=== PATIENT | female | born 1985 | race Caucasian/White ===

== ENCOUNTER 2016-06-11 16:26 | Inpatient (IN) | payer OTHER ==
--- NOTE | 2016-06-11 17:03 | Emergency Department Report ---
Chief Complaint: Abdominal Pain Stated Complaint: PHYSICIAN REFERRED/EYE Time Seen by Provider: 06/11/16 17:02 - HPI History of Present Illness: 31 year old female presents with ruq pain, jaundice, and scleral icterus for 3 days with associated NV. states that she was UC and told to come to the ED. denies fever. - Exam Vital Signs: Vital Signs 06/11/16 16:40 Temperature 98.2 F Pulse Rate 72 Respiratory 18 Rate Blood Pressure 103/70 O2 Sat by Pulse 100 Oximetry Physical Exam: VSS patient doesnt appear distressed skin and eyes appear yellow TTP to RUQ. MSE screening note: Focused history and physical exam performed. Due to findings the following was ordered: ED Disposition for MSE Condition: Stable Instructions: Abdominal Pain (ED)
[2016-06-11 17:46] LABS: Basophils % (Auto) 0.7 % (0.0-1.8); Hematocrit 37.3 % (30.3-42.9); Hemoglobin 12.6 gm/dl (10.1-14.3); Mean Corpuscular HGB Conc 34 % (30-34); Mean Corpuscular Hemoglobin 32 pg (28-32); Mean Corpuscular Volume 94 fl (79-97); Platelet Count 319 K/mm3 (140-440); Red Blood Count 3.95 M/mm3 (3.65-5.03); Red Cell Distribution Width 15.9 % (13.2-15.2); White Blood Count 6.4 K/mm3 (4.5-11.0)
[2016-06-11 17:51] LABS: Bilirubin,Urine MOD (Negative); Blood,Urine NEG (Negative); Ketones,Urine NEG (Negative); Leukocyte Esterase,Urine NEG (Negative); Mucus,Urine 1+ /HPF; Nitrite,Urine NEG (Negative); Protein,Urine <15 mg/dL mg/dL (Negative); WBC,Urine < 1.0 /HPF (0.0-6.0)
[2016-06-11 18:02] LABS: INR 0.91 (0.87-1.13)
[2016-06-11 18:03] LABS: Partial Thromboplastin Time 29.3 Sec. (24.2-36.6)
[2016-06-11 18:07] LABS: Alanine Aminotransferase 356 units/L (7-56); Alkaline Phosphatase 532 units/L (35-129); Anion Gap 21 mmol/L; Bilirubin,Total 9.2 mg/dL (0.1-1.2); Blood Urea Nitrogen 10 mg/dL (7-17); Calcium 9.3 mg/dL (8.4-10.2); Carbon Dioxide 19 mmol/L (22-30); Chloride 101.3 mmol/L (98-107); Glucose 103 mg/dL (65-100); Potassium 3.9 mmol/L (3.6-5.0); Sodium 137 mmol/L (137-145); Total Protein 8.2 g/dL (6.3-8.2)
[2016-06-11 18:15] LABS: Lipase 590 units/L (13-60)
--- NOTE | 2016-06-11 20:04 | Ultrasound Report ---
FINAL REPORT EXAM: US ABDOMEN LIMITED HISTORY: ruq pain TECHNIQUE: Real-time sonography was performed of the right upper quadrant and images are submitted for interpretation. PRIORS: None. FINDINGS: There is diffuse increased echogenicity of the liver. There is a 2.9 x 2.7 cm echogenic mass in the dome of the right lobe of the liver slightly less echogenic than the surrounding liver parenchyma. There numerous stones in an otherwise normal-appearing gallbladder. There is intrahepatic biliary dilatation. The common bile duct is dilated to 1.3 cm. The pancreas has a normal echogenicity and appearance. The visualized segments of the abdominal aorta and inferior vena cava appear normal. The right kidney appears normal in size, shape and echogenicity, measuring 11.4 x 5.2 x 4.0 cm. IMPRESSION: 1. Multiple stones in the gallbladder. Intra and extrahepatic biliary dilatation raises the possibility of a CBD stone. 2. 2.9 cm mass in the right lobe of the liver may represent a hemangioma. 3. Diffuse fatty infiltration of the liver 4. MRI of the abdomen with MRCP is recommended for further evaluation.
--- NOTE | 2016-06-12 03:55 | Emergency Department Report ---
HPI - General Chief Complaint: Abdominal Pain Time Seen by Provider: 06/12/16 03:28 - HPI HPI: This is a 31-year-old female who presents to the emergency department with complaint of a three-day history of right upper quadrant abdominal pain and jaundice. Patient also complains of some generalized itching of the body. She first noticed that she was getting a bronze tinge to her scan and her eyes were becoming yellow. Patient denies any significant history other than some mild anemia. She just delivered a baby vaginally about 4 months ago and has continued to breast-feed and therefore has not yet had a return of her menstrual cycle. She does not currently have a primary care physician. She is not taken anything for symptoms prior to presentation. Patient has had a decreased appetite but says that when she has eaten and has not affected her discomfort. No recent travel or sick contacts at home. ED Past Medical Hx - Past Medical History Previous Medical History?: Yes Additional medical history: amenia - Surgical History Past Surgical History?: No - Social History Smoking Status: Never Smoker Substance Use Type: None ED Review of Systems ROS: Stated complaint: PHYSICIAN REFERRED/EYE Other details as noted in HPI Comment: All other systems reviewed and negative Constitutional: denies: chills, fever Eyes: denies: eye pain, eye discharge, vision change ENT: denies: ear pain, throat pain Respiratory: denies: cough, shortness of breath, wheezing Cardiovascular: denies: chest pain, palpitations Gastrointestinal: abdominal pain. denies: vomiting Genitourinary: denies: urgency, dysuria, discharge Musculoskeletal: denies: back pain, joint swelling, arthralgia Skin: change in color, pruritus Neurological: denies: headache, weakness, paresthesias Physical Exam - Physical Exam Vital Signs: Vital Signs 06/11/16 06/12/16 06/12/16 16:40 02:53 03:44 Temperature 98.2 F 98.1 F Pulse Rate 72 81 65 Respiratory 18 18 16 Rate Blood Pressure 103/70 107/73 Blood Pressure 117/65 [Left] O2 Sat by Pulse 100 98 98 Oximetry Physical Exam: GENERAL: The patient is well-developed well-nourished. HEENT: Normocephalic. Atraumatic. Extraocular motions are intact. Patient has moist mucous membranes. Pupils equal reactive to light bilaterally. Patient has scleral icterus. NECK: Supple. Trachea is midline. CHEST/LUNGS: Clear to auscultation. There is no respiratory distress noted. HEART/CARDIOVASCULAR: Regular. There is no tachycardia. There is no gallop rub or murmur. ABDOMEN: Abdomen is soft. The patient has tenderness to palpation to the right upper quadrant and epigastrium. No guarding or rebound tenderness. No peritoneal signs. Patient has normal bowel sounds. There is no abdominal distention. SKIN: Patient's skin is jaundiced. NEURO: The patient is awake, alert, and oriented. The patient is cooperative. The patient has no focal neurologic deficits. The patient has normal speech and gait. MUSCULOSKELETAL: There is no tenderness or deformity. There is no limitation range of motion. There is no evidence of acute injury. ED Course Vital Signs 06/11/16 06/12/16 06/12/16 16:40 02:53 03:44 Temperature 98.2 F 98.1 F Pulse Rate 72 81 65 Respiratory 18 18 16 Rate Blood Pressure 103/70 107/73 Blood Pressure 117/65 [Left] O2 Sat by Pulse 100 98 98 Oximetry ED Medical Decision Making - Lab Data Result diagrams: 06/11/16 17:28 06/11/16 17:28 - Radiology Data Radiology results: report reviewed Right upper quadrant ultrasound of the abdomen shows multiple stones in the gallbladder but the gallbladder is is otherwise normal-appearing. In general and extrahepatic biliary dilatated and raises the possibility of a common bile duct stone. 2.9 cm mass in the right lobe of the liver may represent a hemangioma. Fatty infiltration of the liver. MRI of the abdomen with MRCP is recommended for further evaluation. - Medical Decision Making 31-year-old female presents to the emergency department with 3 day history of right upper quadrant and epigastric pain as well as jaundice and scleral icterus. Patient's labs show elevation in bilirubin, LFTs and lipase. Ultrasound was done that shows normal-appearing gallbladder and pancreas but there are gallstones as well as some dilatated of the common bile duct concerning for possible common bile duct stones. Patient will need MRCP and further consultation by gastroenterology and/or surgery. Patient will be admitted to hospital for further evaluation and treatment. - Differential Diagnosis choledocholithiasis, cholangitis, cholecystitis, pancreatitis, hepatitis Critical Care Time: No Critical care attestation.: If time is entered above; I have spent that time in minutes in the direct care of this critically ill patient, excluding procedure time. ED Disposition Clinical Impression: Cholangitis, Choledocholithiasis, Transaminitis, Hyperbilirubinemia Abdominal pain Qualifiers: Abdominal location: right upper quadrant Qualified Code(s): R10.11 - Right upper quadrant pain Disposition: OP ADMITTED IP TO THIS HOSP Is pt being admited?: Yes Condition: Stable Instructions: Abdominal Pain (ED) Time of Disposition: 04:17
--- NOTE | 2016-06-12 04:28 | History and Physical Report ---
History of Present Illness Chief complaint: changing color, abdominal pain History of present illness: 31 YO Female with Anemia presents to ED for evaluation. Pt states that she has been experiencing abdominal pain for the past 3 days. Pain is 5/10, localized to the RUQ, and is accompanied by darkening of the skin, yellowing of the eyes, and itching. Pt denies fever, chills, CP, palpitations, NVD, trauma, skin rashes , or recent ill contacts. Pt denies pain with meals, unintentional weight loss, night sweats. Past History Past Medical History: anemia, other Past Surgical History: No surgical history, Other (reviewed) Social history: no significant social history, single. denies: smoking, alcohol abuse Family history: hypertension Medications and Allergies Allergies Allergy/AdvReac Type Severity Reaction Status Date / Time Penicillins Allergy Unknown Verified 06/12/16 04:42 Review of Systems Gastrointestinal: abdominal pain Exam - Constitutional Vitals: Temp Pulse Resp BP Pulse Ox 98.1 F 65 16 117/65 98 06/12/16 02:53 06/12/16 03:44 06/12/16 03:44 06/12/16 03:44 06/12/16 03:44 General appearance: Present: no acute distress - EENT Eyes: Present: scleral icterus ENT: hearing intact, clear oral mucosa - Neck Neck: Present: supple, normal ROM - Respiratory Respiratory effort: normal Respiratory: bilateral: CTA - Cardiovascular Heart Sounds: Present: S1 & S2. Absent: rub, click - Extremities Extremities: pulses symmetrical, No edema Peripheral Pulses: within normal limits - Abdominal General gastrointestinal: Present: soft, non-tender, non-distended, normal bowel sounds. Absent: hepatomegaly, splenomegaly Female genitourinary: Present: normal - Integumentary Integumentary: Present: clear, warm, dry, jaundice - Musculoskeletal Musculoskeletal: gait normal, strength equal bilaterally - Psychiatric Psychiatric: appropriate mood/affect, intact judgment & insight - Neurologic Neurologic: CNII-XII intact, moves all extremities Results - Labs CBC & Chem 7: 06/11/16 17:28 06/11/16 17:28 Labs: Abnormal lab results 06/11/16 06/11/16 Range/Units 17:28 17:28 RDW 15.9 H (13.2-15.2) % [place] % (Auto) 10.3 H (0.0-7.3) % Carbon Dioxide 19 L (22-30) mmol/L Creatinine 0.2 L (0.7-1.2) mg/dL Glucose 103 H (65-100) mg/dL Total Bilirubin 9.2 H (0.1-1.2) mg/dL AST 219 H (5-40) units/L ALT 356 H (7-56) units/L Alkaline Phosphatase 532 H (35-129) units/L Lipase 590 H (13-60) units/L Assessment and Plan - Patient Problems (1) Obstructive jaundice Current Visit: Yes Status: Acute Plan to address problem: Ultrasound Abdomen, MRCP in AM. GI and surgery consulted in ED. (2) Abdominal pain Current Visit: Yes Status: Acute Qualifiers: Abdominal location: right upper quadrant Qualified Code(s): R10.11 - Right upper quadrant pain Plan to address problem: serial abdominal exam, supportive care, (3) Cholangitis Current Visit: Yes Status: Acute Plan to address problem: MRCP in AM, Surgery consulted in ED (4) Hyperbilirubinemia Current Visit: Yes Status: Acute Plan to address problem: secondary to obstructive jaundice. repeat cmp, supportive care, MRCP, GI and Surgery consulted (5) DVT prophylaxis Current Visit: Yes Status: Acute
--- NOTE | 2016-06-12 07:59 | Admit Criteria Form ---
Admission Criteria Documentation: ABDOMINAL PAIN Clinical Indications for Admission to Inpatient Care (Place 'X' for any and all applicable criteria): Admission is indicated for ANY ONE of the following(1)(2)(3)(4)(5): [ X]I. Inpatient admission required rather than observation care (Also use Abdominal Pain: Observation Care, as appropriate) because of ANY ONE of the following: [ ]a) Severe pain requiring acute inpatient management [ ]b) Identification of etiology/finding that requires inpatient care (eg, aortic dissection, free air) [ ]c) Absent bowel sounds with complete ileus(6) [ ]d) Suspected toxic megacolon [ ]e) Severe electrolyte abnormalities requiring inpatient care [ ]f) High fever or infection requiring inpatient admission as indicated by ANY ONE of following(7)(8): [ ] i) Appropriate outpatient or observational care antimicrobial treatment unavailable, not effective, or not feasible [ ] ii) Documented bacteremia [ ] iii) Temperature > 104.9 degrees F (oral) [ ] iv) T >103.1 F (oral) or < 96.8 F(rectal) that does not respond to all emergency treatment measures [ ]g) Signs of intestinal obstruction [B] [ ]h) Hemodynamic instability [ ]i) IV fluid to replace significant ongoing losses (greater than 3 L/m2 per day) (12)(13) [ X]j) Percutaneous or open drainage (eg, abscess, biliary tract) procedures [ ]k) Parenteral nutrition regimen that must be implemented on inpatient basis [ ]l) Other condition,treatment or monitoring requiring inpatient admission. [ ]II. Peritoneal signs present [ ]III. Surgery needed that cannot be performed on an ambulatory basis. [ ]IV. Evaluation requires patient to not eat or drink for extended period ( eg, more than 24 hours). [ ]V. Contraindications and/or Inappropriate clinical situations for Observational Care in patients with abdominal pain, when ANY ONE of the following is required: [ ]a) Thorough evaluation is required to prevent catastrophic events due to delays in diagnosing (e.g.Mesenteric ischemia) 1,3 [ ]b) Patient with severe pathology or with chronic symptoms unlikely to improve in the ED stay (3) [ ]. General contraindications and/or Inappropriate clinical situations for Observational Care in patients with abdominal pain, when ANY ONE of the following is required: [ ]a) Prediction of prolongation of LOS based on ANY ONE of the following may be considered as a contraindication for observational care 2, 3, 4, 5, 6, 7, 8, 9, 10, 11 [ ]i) Age > 65 yrs. [ ]ii) Patient arriving by ambulance [ ]iii) Patient with high acuity [ ]iv) Patient requiring vital sign monitoring [ ]v) Patient on IV medication [ ]b) Systolic blood pressures 180mmHg 3,12 [ ]c) Patient with altered mental status including delirium and other alteration of consciousness, (3) [ ]d) Patient whose discharge disposition will be to a [place] [facility] home or rehabilitation home should not be managed in Emergency Department Observation Unit. CMS rule requires 3 days hospital stay before such placement.3,13 [ ]e) Patient with failure to thrive due to broad array of etiologies 3,16,17 [ ]f) Inability to ambulate 3,14 Extended stay beyond goal length of stay may be needed for(2)(3): [ ]a) Persistent abdominal pain with suspected intra-abdominal process [ ]b) Diagnosed condition requiring continued stay (e.g., pancreatitis, complicated diverticulitis) [ ]c) Surgery (e.g., colectomy) The original [facility] content created by [employer] has been revised. The portions of the content which have been revised are identified through the use of italic text or in bold, and [facility] has neither reviewed nor approved the modified material.All other unmodified content is copyright [facility]. Please see references footnoted in the original [facility] edition 2016 Admission Criteria Met: Yes
[2016-06-12] MEDS: BENADRYL IV PRN ×2 (09:09→14:00)
[2016-06-12] MEDS: ZOFRAN IV PRN (09:09)
[2016-06-12] MEDS: NACL 0.45% 1000 ML 1,000 ML IV SCH ×2 (09:09→16:54)
[2016-06-12] MEDS: MORPHINE IV PRN ×2 (09:09→16:49)
[2016-06-12 13:22] LABS: Alanine Aminotransferase 322 units/L (7-56); Albumin 3.8 g/dL (3.9-5); Alkaline Phosphatase 521 units/L (35-129); Anion Gap 20 mmol/L; Bilirubin,Total 9.4 mg/dL (0.1-1.2); Blood Urea Nitrogen 9 mg/dL (7-17); Calcium 9.4 mg/dL (8.4-10.2); Carbon Dioxide 20 mmol/L (22-30); Chloride 101.5 mmol/L (98-107); Glucose 87 mg/dL (65-100); Potassium 3.7 mmol/L (3.6-5.0); Sodium 138 mmol/L (137-145); Total Protein 7.7 g/dL (6.3-8.2)
--- NOTE | 2016-06-12 13:29 | Event Note ---
Date: 06/12/16 Patient seen clinically stable, awaiting GI input. Continue to monitor.
--- NOTE | 2016-06-12 13:51 | Magnetic Resonance Report ---
MRI ABDOMEN WITHOUT CONTRAST WITH MRCP: INDICATION: Obstructive jaundice. COMPARISON: Yesterday's ultrasound. FINDINGS: Noncontrast multiplanar and multisequence MRI of the abdomen demonstrates [id number] intrahepatic biliary dilatation centrally. Multiple gallstones measuring to the order of 5-6 mm noted within the gallbladder and also some along the distal common bile duct. Normal hepatic contours without MRI evidence of fatty infiltration. Approximately 3 x 2.7 cm hepatic lesion seen on ultrasound, barely visible in the right hepatic lobe posterosuperiorly and minimally T1 hypointense as on axial series 5, image 38 and faintly T2 hyperintense as on axial series 4, image 17 measuring approximately 3 cm. Spleen, pancreas, adrenals, non-aneurysmal abdominal aorta, IVC and kidneys within normal limits. No ascites or definite size significant adenopathy. Grossly unremarkable bowel, marrow and muscle signal. [id number] colonic stool/possible constipation. Small umbilical hernia not excluded with slight outward bowing and subjacent nonobstructive bowel. Normal imaged lung bases. MRCP images confirm the above findings. CBD caliber at the yolanda hepatis approximately 14 mm and approximately 12 mm at the level of the pancreatic head with extensive [id number] common bile duct calculi/debris measuring approximately 3.3 x 1 cm noted extending up to the ampulla. No abnormal pancreatic duct dilation, measuring 2-3 mm. CONCLUSION: 1. Extensive choledocholithiasis with biliary dilation, as described. 2. Multiple gallstones also noted. 3. Subtle right hepatic lobe lesion posterosuperiorly, inadequately characterized, though a hemangioma or fatty hepatic infiltration not confirmed on this unenhanced MRI. Further evaluation with liver mass protocol CT suggested as the next step, if so appropriate. 4. Few other incidental findings, as above. Thank you for the opportunity to participate in this patient's care.
--- NOTE | 2016-06-12 17:00 | Gastroenterology Consultation ---
[id number] Consult date: 06/12/16 obstructive jaundice - History of Present Illness 31 y/o female presents to the ED she has been experiencing RUQ pain abdominal pain for the past 3 days and is associated with jaundice. fever, SOB and CP , but admits to shaking chills. No significant PMH or medications. Past History Past Medical History: No medical history, anemia, other Past Surgical History: No surgical history, Other (reviewed) Social history: no significant social history, single. denies: smoking, alcohol abuse Family history: hypertension Medications and Allergies Allergies Allergy/AdvReac Type Severity Reaction Status Date / Time No Known Allergies Allergy Unverified 06/13/16 11:48 Home Medications Medication Instructions Recorded Confirmed Last Taken Type No Known Home Medications [No 06/12/16 06/12/16 Unknown History Reported Home Medications] Active Meds: Active Medications Diphenhydramine HCl (Benadryl) 25 mg IV Q6H PRN PRN Reason: Itching Last Admin: 06/12/16 14:00 Dose: 25 mg Sodium Chloride (Nacl 0.45% 1000 Ml) 1,000 mls @ 100 mls/hr IV DIRECT CAMERON Last Admin: 06/12/16 09:09 Dose: 100 mls/hr Influenza Virus Vaccine Quadrival (Fluarix Quad [id number](36 Mos+)) 60 mcg IM .ONCE ONE Stop: 06/13/16 12:01 Morphine Sulfate (Morphine) 2 mg IV Q4H PRN PRN Reason: Pain, Moderate (4-6) Last Admin: 06/12/16 16:49 Dose: 2 mg Ondansetron HCl (Zofran) 4 mg IV Q8H PRN PRN Reason: Nausea And Vomiting Last Admin: 06/12/16 09:09 Dose: 4 mg Review of Systems - Review of Systems All systems: negative Gastrointestinal: abdominal pain, nausea Exam - Constitutional Vital Signs: Temp Pulse Resp BP Pulse Ox 98.8 F 51 L 15 99/54 97 06/12/16 15:55 06/12/16 15:55 06/12/16 15:55 06/12/16 15:55 06/12/16 15:55 General appearance: no acute distress - EENT Eyes: scleral icterus ENT: hearing intact - Neck Neck: supple - Respiratory Respiratory: bilateral: CTA - Cardiovascular Rhythm: regular Heart Sounds: Present: S1 & S2 Extremities: Full ROM - Gastrointestinal General gastrointestinal: Present: soft, tender (TTP RUQ), normal bowel sounds - Integumentary Integumentary: Present: warm, dry, jaundice - Neurologic Neurological: alert and oriented x3 - Psychiatric Psychiatric: appropriate mood/affect, cooperative - Labs CBC & Chem 7: 06/11/16 17:28 06/12/16 12:51 Lab Results: Laboratory Results - last 24 hr 06/12/16 12:51 Sodium 138 Potassium 3.7 Chloride 101.5 Carbon Dioxide 20 L Anion Gap 20 BUN 9 Creatinine 0.4 L D Estimated GFR > 60 BUN/Creatinine Ratio 22.50 Glucose 87 Calcium 9.4 Total Bilirubin 9.4 H AST 209 H ALT 322 H Alkaline Phosphatase 521 H Total Protein 7.7 Albumin 3.8 L Albumin/Globulin Ratio 1.0 Assessment and Plan 1. Choledocholithiasis -per MRCP -WBC WNL, afebrile -Plan for ERCP tomorrow. -NPO after MN -No blood thinning meds -INR WNL <COBY DIALLO R - Last Filed: 06/13/16 13:28> History of Present Illness - Reason for Consult Consult date: 06/12/16 Medications and Allergies Active Meds: Active Medications Diphenhydramine HCl (Benadryl) 25 mg IV Q6H PRN PRN Reason: Itching Last Admin: 06/13/16 00:41 Dose: 25 mg Sodium Bicarbonate 50 meq/ (Sodium Chloride) 1,050 mls @ 100 mls/hr IV DIRECT CAMERON Sodium Chloride (Nacl 0.9% 1000 Ml) 1,000 mls @ 75 mls/hr IV DIRECT CAMERON Stop: 06/13/16 23:00 Last Admin: 06/13/16 11:35 Dose: 75 mls/hr Morphine Sulfate (Morphine) 2 mg IV Q4H PRN PRN Reason: Pain, Moderate (4-6) Last Admin: 06/13/16 10:10 Dose: 2 mg Ondansetron HCl (Zofran) 4 mg IV Q8H PRN PRN Reason: Nausea And Vomiting Last Admin: 06/13/16 10:10 Dose: 4 mg Exam - Constitutional Vital Signs: Temp Pulse Resp BP Pulse Ox 98.3 F 67 20 101/66 99 06/13/16 11:20 06/13/16 11:20 06/13/16 11:20 06/13/16 11:20 06/13/16 11:20 - Labs CBC & Chem 7: 06/11/16 17:28 06/13/16 06:10 Lab Results: Laboratory Results - last 24 hr 06/12/16 06/13/16 12:51 06:10 Sodium 138 Potassium 4.0 Chloride 102.2 Carbon Dioxide 18 L Anion Gap 22 BUN 12 Creatinine 0.4 L D 0.4 L Estimated GFR > 60 BUN/Creatinine Ratio 30.00 Glucose 62 L Calcium 9.4 Total Bilirubin 10.7 H AST 166 H ALT 273 H Alkaline Phosphatase 506 H Total Protein 7.2 Albumin 3.6 L Albumin/Globulin Ratio 1.0 Assessment and Plan Pt with stones in CBD, needs ERCP.
[2016-06-13] MEDS: BENADRYL IV PRN ×2 (00:41→19:53)
[2016-06-13] MEDS: NACL 0.45% 1000 ML 1,000 ML IV SCH (00:54)
[2016-06-13 07:03] LABS: Alanine Aminotransferase 273 units/L (7-56); Albumin 3.6 g/dL (3.9-5); Alkaline Phosphatase 506 units/L (35-129); Bilirubin,Total 10.7 mg/dL (0.1-1.2); Blood Urea Nitrogen 12 mg/dL (7-17); Calcium 9.4 mg/dL (8.4-10.2); Carbon Dioxide 18 mmol/L (22-30); Chloride 102.2 mmol/L (98-107); Glucose 62 mg/dL (65-100); Sodium 138 mmol/L (137-145); Total Protein 7.2 g/dL (6.3-8.2)
[2016-06-13 07:07] LABS: Anion Gap 22 mmol/L
[2016-06-13] MEDS: MORPHINE IV PRN ×2 (10:10→20:10)
[2016-06-13] MEDS: ZOFRAN IV PRN (10:10)
[2016-06-13] MEDS ORDERED: NACL 0.45% 1000 ML 1,000 ML with SODIUM BICARBONATE 50 MEQ IV SCH (11:17)
[2016-06-13] MEDS ORDERED: NACL 0.9% 100 ML ONE (11:19)
[2016-06-13] MEDS ORDERED: WATER FOR IRRIG STERILE IR ONE (11:19)
[2016-06-13] MEDS: NACL 0.9% 1000 ML 1,000 ML IV SCH ×2 (11:35→13:57)
--- NOTE | 2016-06-13 11:45 | Anesthesia Day of Surgery ---
Anesthesia Day of Surgery - Day of Surgery Patient Examined: Yes Patient H&P Reviewed: Yes Patient is NPO: Yes
--- NOTE | 2016-06-13 11:45 | Anesthesia Consultation ---
Anesthesia Consult and Med Hx Date of service: 06/13/16 - Airway Anesthetic Teeth Evaluation: Good ROM Head & Neck: Adequate Mental/Hyoid Distance: Adequate Mallampati Class: Class I Intubation Access Assessment: Good - Pulmonary Exam CTA: Yes - Cardiac Exam Cardiac Exam: RRR - Pre-Operative Health Status ASA Pre-Surgery Classification: ASA2 Proposed Anesthetic Plan: MAC - Pulmonary Hx Asthma: No COPD: No Hx Pneumonia: No - Endocrine Hx End Stage Renal Disease: No - Other Systems Hx Cancer: No - Additional Comments Anesthesia Medical History Comments: very icteric, denies significant PMH
[2016-06-13] MEDS ORDERED: DIPRIVAN 10 MG/ML IV ONE (12:00)
[2016-06-13] MEDS ORDERED: FLUARIX QUAD 2016-2017(36 MOS+) IM ONE (12:00)
[2016-06-13] MEDS ORDERED: VERSED IV ONE (12:31)
[2016-06-13] MEDS ORDERED: DILAUDID ONE (12:32)
[2016-06-13] MEDS ORDERED: XYLOCAINE MPF 2% ONE (12:33)
--- NOTE | 2016-06-13 13:31 | Post Operative Note ---
Pre-op diagnosis: CBD stones Post-op diagnosis: same Findings: 1. CBD dilated to 12 mm, with multiple large filling defects. Sphincterotomy done, and stones removed. Procedure: ERCP with sphincterotomy and stone removal Anesthesia: MAC Surgeon: COBY DIALLO Estimated blood loss: none Pathology: none Condition: stable Disposition: floor (Avoid ASA/NSAIDs x 2 wks. Elective CCX.)
--- NOTE | 2016-06-13 15:14 | Post Anesthesia Evaluation ---
- Post Anesthesia Evaluation Patient Participated: Yes Airway Patent: Yes Stable Respiratory Function: Yes Nausea/Vomiting: No Temp > 96.8F: Yes Pain Manageable: Yes Adequeate Hydration: Yes Anesthesia Complications: No
--- NOTE | 2016-06-13 15:37 | Fluoroscopy Report ---
Retrograde cholangiogram: Exam was performed in the absence of a radiologist. The CBD was catheterized. Injection of contrast demonstrated a partially obstructing large defect in the distal duct with a couple of other defects noted proximally. The duct is generally dilated. There is some filling of the intrahepatic branches which also appear dilated with no definite filling defects however they are underfilled. One of the images demonstrates passage of a balloon. The ducts remain somewhat dilated following the procedure and the duct is incompletely opacified so retained calculi cannot be absolutely excluded. It is of note that the gallbladder is faintly opacified with multiple filling defects. The procedure sheet demonstrates that a papillotomy was also performed. Impression: 1. Gallstones. 2. Removal of some if not all of the biliary duct calculi.
--- NOTE | 2016-06-13 18:48 | Operative Report ---
PROCEDURE: ERCP with sphincterotomy and stone removal. PREOPERATIVE DIAGNOSIS: Choledocholithiasis. POSTOPERATIVE DIAGNOSIS: Choledocholithiasis. SEDATION: MAC by Anesthesia. HISTORY: The patient is a 31-year-old woman, who presents with obstructive jaundice and abdominal pain. DESCRIPTION OF PROCEDURE: Indications, risks, and benefits were explained and consent was obtained. The patient was placed on abdominal fluoroscopy table and sedated. [employer] video duodenoscope was passed through the mouth and oropharynx into the descending duodenum. Scope was then gradually withdrawn with close inspection of mucosa until the major papilla was visualized. Selective cannulation of common bile duct, especially achieved using the Autotome and guidewire. FINDINGS: 1. Bulging major papilla, otherwise normal. 2. Common bile duct is dilated to 12 mm with multiple large filling defects noted. 1 cm biliary sphincterotomy was performed. Then, the duct was swept repeatedly with a 12 mm balloon with the return of multiple large yellow stones measuring 1.2 to 1.4 cm and numbering at least 4 or 5. At the end of the procedure, no further filling defects were identified in the common bile duct. No strictures were identified. 3. Patent cystic duct. 4. Pancreatic duct was not visualized. The patient tolerated the procedure well without immediate complications. IMPRESSION: Choledocholithiasis - sphincterotomy with balloon. No bleeding noted. PLAN: 1. Elective cholecystectomy. 2. Avoid aspirin and nonsteroidals for 2 weeks. JOB# [id number] HRC/NTS
--- NOTE | 2016-06-13 19:14 | Progress Note ---
Assessment and Plan Assessment and plan: 31 YO Female with Anemia presents to ED for evaluation. Pt states that she has been experiencing abdominal pain for the past 3 days. Pain is 5/10, localized to the RUQ, and is accompanied by darkening of the skin, yellowing of the eyes, and itching. Pt denies fever, chills, CP, palpitations, NVD, trauma, skin rashes , or recent ill contacts. Pt denies pain with meals, unintentional weight loss, night sweats. * Choledocholithiasis * Patient status post ERCP with stone retrieval. Sphincterectomy. * Abdominal pain secondary to above * As noted above * Obstructive jaundice * Recent elevation in transaminases not improving and we'll continue to monitor status post hysterectomy * Discussed with GI avoid all NSAIDs, aspirin,. * Clear liquid diet today and if tolerated will be discharged tomorrow. * Post * DVT and GI prophylaxis History Interval history: Follow-up abdominal pain with noted CBD stone Patient seen and examined this morning in no acute distress Denies any chest pain, nausea, vomiting, diarrhea, although mild abdominal pain improved compared to yesterday No fever noted blood pressure controlled No adverse events reported to me by nursing staff Hospitalist Physical - Physical exam Narrative exam: VITAL SIGNS: Reviewed. GENERAL: The patient appeared well nourished and normally developed. Vital signs as documented. HEAD: No signs of head trauma. EYES: Pupils are equal. Extraocular motions intact, sclerae icteric. EARS: Hearing grossly intact. MOUTH: Oropharynx is normal. NECK: No adenopathy, no JVD. CHEST: Chest with clear breath sounds bilaterally. No wheezes, rales, or rhonchi. CARDIAC: Regular rate and rhythm. S1 and S2, without murmurs, gallops, or rubs. VASCULAR: No Edema. Peripheral pulses normal and equal in all extremities. ABDOMEN: Soft, tender but not as yesterday. No sign of distention. No rebound or guarding, and no masses palpated. Bowel Sounds normal. MUSCULOSKELETAL: Good range of motion of all major joints. Extremities without clubbing, cyanosis or edema. NEUROLOGIC EXAM: Alert and oriented x 3. No focal sensory or strength deficits. Speech normal. Follows commands. PSYCHIATRIC: Mood normal. SKIN: Jaundiced. - Constitutional Vitals: Temp Pulse Resp BP Pulse Ox 97.6 F 62 16 102/62 97 06/13/16 13:24 06/13/16 14:37 06/13/16 14:37 06/13/16 14:37 06/13/16 13:51 General appearance: Present: no acute distress Results - Labs CBC & Chem 7: 06/11/16 17:28 06/13/16 06:10 Labs: Laboratory Last Values WBC 6.4 K/mm3 (4.5-11.0) 06/11/16 17: RBC 3.95 M/mm3 (3.65-5.03) 06/11/16 17:28 Hgb 12.6 gm/dl (10.1-14.3) 06/11/16 17: Hct 37.3 % (30.3-42.9) 06/11/16 17: MCV 94 fl (79-97) 06/11/16 17: MCH 32 pg (28-32) 06/11/16 17: MCHC 34 % (30-34) 06/11/16 17: RDW 15.9 % (13.2-15.2) H 06/11/16 17:28 Plt Count 319 K/mm3 (140-440) 06/11/16 17:28 Lymph % (Auto) 22.0 % (13.4-35.0) 06/11/16 17:28 [place] % (Auto) 10.3 % (0.0-7.3) H 06/11/16 17:28 Eos % (Auto) 4.0 % (0.0-4.3) 06/11/16 17: Baso % (Auto) 0.7 % (0.0-1.8) 06/11/16 17:28 Lymph # 1.4 K/mm3 (1.2-5.4) 06/11/16 17:28 [place] # 0.7 K/mm3 (0.0-0.8) 06/11/16 17: Eos # 0.3 K/mm3 (0.0-0.4) 06/11/16 17: Baso # 0.0 K/mm3 (0.0-0.1) 06/11/16 17: Seg Neutrophils % 63.0 % (40.0-70.0) 06/11/16 17: Seg Neutrophils # 4.0 K/mm3 (1.8-7.7) 06/11/16 17:28 PT 12.2 Sec. (12.2-14.9) 06/11/16 17:28 INR 0.91 (0.87-1.13) 06/11/16 17:28 APTT 29.3 Sec. (24.2-36.6) 06/11/16 17:28 Sodium 138 mmol/L (137-145) 06/13/16 06:10 Potassium 4.0 mmol/L (3.6-5.0) 06/13/16 06:10 Chloride 102.2 mmol/L (98-107) 06/13/16 06:10 Carbon Dioxide 18 mmol/L (22-30) L 06/13/16 06:10 Anion Gap 22 mmol/L 06/13/16 06:10 BUN 12 mg/dL (7-17) 06/13/16 06:10 Creatinine 0.4 mg/dL (0.7-1.2) L 06/13/16 06:10 Estimated GFR > 60 ml/min 06/13/16 06:10 BUN/Creatinine Ratio 30.00 % 06/13/16 06:10 Glucose 62 mg/dL (65-100) L 06/13/16 06:10 Calcium 9.4 mg/dL (8.4-10.2) 06/13/16 06:10 Total Bilirubin 10.7 mg/dL (0.1-1.2) H 06/13/16 06:10 AST 166 units/L (5-40) H 06/13/16 06:10 ALT 273 units/L (7-56) H 06/13/16 06:10 Alkaline Phosphatase 506 units/L (35-129) H 06/13/16 06:10 Total Protein 7.2 g/dL (6.3-8.2) 06/13/16 06:10 Albumin 3.6 g/dL (3.9-5) L 06/13/16 06:10 Albumin/Globulin Ratio 1.0 % 06/13/16 06:10 Lipase 590 units/L (13-60) H 06/11/16 17:28 Urine Color Peri (Yellow) 06/11/16 17:05 Urine Turbidity Clear (Clear) 06/11/16 17:05 Urine pH 5.0 (5.0-7.0) 06/11/16 17:05 Ur Specific [place] 1.019 (1.003-1.030) 06/11/16 17:05 Urine Protein <15 mg/dl mg/dL (Negative) 06/11/16 17:05 Urine Glucose (UA) Neg mg/dL (Negative) 06/11/16 17:05 Urine Ketones Neg mg/dL (Negative) 06/11/16 17:05 Urine Blood Neg (Negative) 06/11/16 17: Urine Nitrite Neg (Negative) 06/11/16 17:05 Urine Bilirubin Mod (Negative) 06/11/16 17:05 Urine Ictotest Positive (Negative) 06/11/16 17: Urine Urobilinogen 4.0 mg/dL (<2.0) 06/11/16 17:05 Ur Leukocyte Esterase Neg (Negative) 06/11/16 17:05 Urine WBC (Auto) < 1.0 /HPF (0.0-6.0) 06/11/16 17:05 Urine RBC (Auto) 2.0 /HPF (0.0-6.0) 06/11/16 17:05 U Epithel Cells (Auto) 5.0 /HPF (0-13.0) 06/11/16 17:05 Urine Mucus 1+ /HPF 06/11/16 17:05 Urine HCG, Qual Negative (Negative) 06/11/16 17:05
[2016-06-14] MEDS: MORPHINE IV PRN (04:50)
[2016-06-14] MEDS: ZOFRAN IV PRN (04:51)
--- NOTE | 2016-06-14 07:33 | Gastroenterology Progress Note ---
Assessment and Plan 1. Choledocholithiasis -S/P ERCP with sphincterotomy and stone removal. -Denies abdominal pain -No blood thinning meds (ASA, Aleve, Etc) x 2 weeks -Patient c/o sore throat likely from scope advancement, no crepitus or CP -Start clear liquids. Subjective Date of service: 06/14/16 Interval history: No acute events overnight. Pt denies abdominal pain but has complaints of pain with swallowing. Objective - Constitutional Vitals: Temp Pulse Resp BP Pulse Ox 98.9 F 72 16 101/56 98 06/14/16 00:25 06/14/16 04:00 06/14/16 04:50 06/14/16 04:00 06/14/16 00:25 General appearance: no acute distress - EENT Eyes: EOM intact ENT: hearing intact - Respiratory Respiratory: bilateral: CTA - Cardiovascular Rhythm: regular Heart Sounds: Present: S1 & S2 - Gastrointestinal General gastrointestinal: Present: soft, non-tender, normal bowel sounds - Integumentary Integumentary: Present: warm, dry - Labs CBC & Chem 7: 06/11/16 17:28 06/13/16 06:10
--- NOTE | 2016-06-14 10:53 | Discharge Summary ---
Providers - Providers Date of Admission: 06/12/16 04:32 Date of discharge: 06/14/16 Attending physician: KAREEM PADGETT MD 06/12/16 13:04 Consult to Physician [CONS] Routine Consulting Provider: COBY DIALLO Reason For Exam: obstructive juandice Place consult to:: Notified:: OFFICE Phone number called:: [phone] Was contact made?: Yes If yes, spoke with:: BRIDGETTE Time called:: 15:39 Comment:: PAT NOTIFIED Primary care physician: JEWEL HOLE GAUGER Hospitalization Reason for admission: abdominal pain Condition: Stable Hospital course: 31 YO Female with Anemia presents to ED for evaluation. Pt states that she has been experiencing abdominal pain for the past 3 days. Pain is 5/10, localized to the RUQ, and is accompanied by darkening of the skin, yellowing of the eyes, and itching. Pt denies fever, chills, CP, palpitations, NVD, trauma, skin rashes , or recent ill contacts. Pt denies pain with meals, unintentional weight loss, night sweats. On admission she was noted on imaging studies to have choledocholithiasis she did proceed to ERCP with sphincterectomy. Stone removal. She's not well this morning tolerating for which she did complain of sore throat which is likely from scope advancement otherwise no crepitus no chest pain no shortness of breath. I did discuss with her in detail to avoid NSAIDs of blood thinning meds for at least 2 weeks she is to follow up with GI physician for evaluation. She verbalized understanding. Eyes the room with her. Discharge diagnosis * Choledocholithiasis * Status post sphincterectomy * Abdominal pain secondary to above * Obstructive jaundice * Post Disposition: DISCHARGED TO HOME OR SELFCARE Time spent for discharge: 35 mins - Discharge Diagnoses (1) Choledocholithiasis Status: Resolved (2) Obstructive jaundice Status: Acute Core Measure Documentation - Palliative Care Palliative Care/ Comfort Measures: Not Applicable - Core Measures Any of the following diagnoses?: none - VTE Discharge Requirements Deep Vein Thrombosis/Pulmonary Embolism Present on Admission: No Exam - Physical Exam Narrative exam: VITAL SIGNS: Reviewed. GENERAL: The patient appeared well nourished and normally developed. Vital signs as documented. HEAD: No signs of head trauma. EYES: Pupils are equal. Extraocular motions intact, sclerae icteric. EARS: Hearing grossly intact. MOUTH: Oropharynx is normal. NECK: No adenopathy, no JVD. CHEST: Chest with clear breath sounds bilaterally. No wheezes, rales, or rhonchi. CARDIAC: Regular rate and rhythm. S1 and S2, without murmurs, gallops, or rubs. VASCULAR: No Edema. Peripheral pulses normal and equal in all extremities. ABDOMEN: Soft, tender but not as yesterday. No sign of distention. No rebound or guarding, and no masses palpated. Bowel Sounds normal. MUSCULOSKELETAL: Good range of motion of all major joints. Extremities without clubbing, cyanosis or edema. NEUROLOGIC EXAM: Alert and oriented x 3. No focal sensory or strength deficits. Speech normal. Follows commands. PSYCHIATRIC: Mood normal. SKIN: Jaundiced. - Constitutional Vitals: Temp Pulse Resp BP Pulse Ox 98.1 F 62 20 86/54 97 06/14/16 09:21 06/14/16 09:21 06/14/16 09:21 06/14/16 09:21 06/14/16 09:21 Plan Activity: advance as tolerated, fall precautions Diet: clear liquids, advance as tolerated Additional Instructions: Must avoid all NSAIDS, aspirin, aleve, ibuprofen and etc for at least 2 weeks Follow up with: PRIMARY CARE, [Primary Care Provider] - 3-5 Days COBY DIALLO MD [Staff Physician] - 7 Days Prescriptions: traMADol [Ultram] 50 mg PO Q6HR PRN #20 tablet PRN Reason: Pain Ondansetron [Zofran TAB] 4 mg PO Q8HR PRN #30 tablet PRN Reason: Nausea
[2016-06-14 11:31] VITALS: BP 92/58
== END 2016-06-14 12:42 | disposition home or self-care (01) | DRG 445 ==
LOC: ED 16:26 → 3A 06-12 04:32
PROVIDERS: ADMIT Internal Medicine; ATTEND Internal Medicine
PROC: 0FC98ZZ Extirpation of Matter from Common Bile Duct, Via Natural or Artificial Opening Endoscopic (ICD-10-PCS; principal; 2016-06-13)
PROC: 0F798ZZ Dilation of Common Bile Duct, Via Natural or Artificial Opening Endoscopic (ICD-10-PCS; principal; 2016-06-13)
PROC: BF101ZZ Fluoroscopy of Bile Ducts using Low Osmolar Contrast (ICD-10-PCS; principal; 2016-06-13)
DX: K80.31 Calculus of bile duct with cholangitis, unspecified, with obstruction (principal); R74.0 Nonspecific elevation of levels of transaminase and lactic acid dehydrogenase [LDH]; Z82.49 Family history of ischemic heart disease and other diseases of the circulatory system; Z88.0 Allergy status to penicillin
CPT/HCPCS: 36415; 74181; 74328; 76705; 80053; 81001; 81025; 83690; 85025; 85610; 85730; 90686; 96374; 96375; C1726; J1170; J1200; J2250; J2270; J2405; J2704; J7030; Q9967

== ENCOUNTER 2016-07-22 08:54 | Emergency (ER) | payer SELFPAY ==
[2016-07-22 10:03] LABS: Basophils % (Auto) 0.6 % (0.0-1.8); Eosinophils % (Auto) 3.3 % (0.0-4.3); Hematocrit 41.4 % (30.3-42.9); Hemoglobin 13.8 gm/dl (10.1-14.3); Mean Corpuscular HGB Conc 33 % (30-34); Mean Corpuscular Hemoglobin 32 pg (28-32); Mean Corpuscular Volume 96 fl (79-97); Platelet Count 247 K/mm3 (140-440); Red Blood Count 4.33 M/mm3 (3.65-5.03); Red Cell Distribution Width 15.1 % (13.2-15.2); White Blood Count 9.8 K/mm3 (4.5-11.0)
[2016-07-22 10:28] LABS: Alanine Aminotransferase 29 units/L (7-56); Albumin 4.7 g/dL (3.9-5); Albumin/Globulin Ratio 1.3 %; Alkaline Phosphatase 129 units/L (35-129); Anion Gap 18 mmol/L; BUN/Creatinine Ratio 11.42; Bilirubin,Total 0.8 mg/dL (0.1-1.2); Blood Urea Nitrogen 8 mg/dL (7-17); Calcium 9.4 mg/dL (8.4-10.2); Carbon Dioxide 23 mmol/L (22-30); Chloride 103.8 mmol/L (98-107); Glucose 103 mg/dL (65-100); Lipase 38 units/L (13-60); Potassium 4.2 mmol/L (3.6-5.0); Sodium 141 mmol/L (137-145); Total Protein 8.4 g/dL (6.3-8.2)
[2016-07-22 10:59] LABS: Bilirubin,Urine NEG (Negative); Blood,Urine SM (Negative); Ketones,Urine NEG (Negative); Leukocyte Esterase,Urine NEG (Negative); Mucus,Urine 2+ /HPF; Nitrite,Urine NEG (Negative); Protein,Urine <15 mg/dL mg/dL (Negative); Urobilinogen,Urine < 2.0 mg/dL (<2.0)
--- NOTE | 2016-07-22 12:30 | Ultrasound Report ---
ULTRASOUND ABDOMEN COMPLETE: Technique: Transabdominal ultrasound with color Doppler interrogation. History: Right upper quadrant pain, gallstones. Findings: The liver is echogenic suggesting diffuse fatty infiltration. No focal liver mass or surface nodularity. There are several small shadowing gallstones in the gallbladder. No abnormal distention or wall thickening. No surrounding fluid. The CBD is also mildly dilated measuring 7-8 mm. The visualized portions of the pancreas including the head and proximal body are within normal limits. The kidneys demonstrate no hydronephrosis or mass. Cortical thickness and echogenicity are within normal limits bilaterally. The spleen and aorta are within normal limits. No aneurysmal dilatation is noted. No ascites. The bladder is unremarkable. IMPRESSION: Fatty change in the liver. Cholelithiasis. No secondary findings of acute cholecystitis. Dilated common bile duct which could represent choledocholithiasis.
[2016-07-22 14:17] VITALS: BP 109/70
[2016-07-22] MEDS ORDERED: NORCO 5/325 PO ONE (14:50)
--- NOTE | 2016-07-22 17:19 | Emergency Department Report ---
HPI - General Chief Complaint: Abdominal Pain Time Seen by Provider: 07/22/16 10:58 - HPI HPI: 31-year-old female presents today with right upper quadrant pain 4 days. Patient states that she was seen here June 14 for gallbladder stones. Patient was admitted and ERCP was performed. Patient reported symptomatic relief post procedure and states that she followed up with her GI specialist. The pain worsened 4 days ago and patient has been taking tramadol without relief. Positive for minimal nausea and vomiting. Patient states that the pain is worsened with deep breaths. She describes her pain as 7 out of 10 constant pressure. Denies fever, chills, chest pain, shortness of breath. ED Past Medical Hx - Past Medical History Previous Medical History?: Yes Hx Congestive Heart Failure: No Hx Diabetes: No Hx Asthma: No Hx COPD: No Hx HIV: No Additional medical history: anemia - Surgical History Past Surgical History?: No - Social History Smoking Status: Never Smoker Substance Use Type: Prescribed - Medications Home Medications: Home Medications Medication Instructions Recorded Confirmed Last Taken Type Ondansetron [Zofran TAB] 4 mg PO Q8HR PRN #30 tablet 06/14/16 Unknown Rx traMADol [Ultram] 50 mg PO Q6HR PRN #20 tablet 06/14/16 Unknown Rx HYDROcodone/APAP 5-325 [[place] 1 each PO Q6HR PRN #14 tablet 07/22/16 Unknown Rx 5/325] Ondansetron [Zofran TAB] 4 mg PO Q8HR PRN #30 tablet 07/22/16 Unknown Rx ED Review of Systems ROS: Stated complaint: RT UPPER QUAD PAIN Other details as noted in HPI Constitutional: denies: chills, fever, malaise Eyes: denies: eye pain ENT: denies: ear pain, throat pain, congestion Respiratory: denies: cough, shortness of breath, wheezing Cardiovascular: denies: chest pain, palpitations Endocrine: no symptoms reported Gastrointestinal: abdominal pain, nausea, vomiting Neurological: denies: headache, weakness Physical Exam - Physical Exam Vital Signs: Vital Signs 07/22/16 07/22/16 09:37 14:16 Temperature 97.7 F 98.1 F Pulse Rate 63 55 L Respiratory 18 15 Rate Blood Pressure 114/77 Blood Pressure 109/70 [Left] O2 Sat by Pulse 100 99 Oximetry Physical Exam: GENERAL: The patient is well-developed and well-nourished. Patient is in NAD. HEAD: Normocephalic. Atraumatic. CHEST/LUNGS: Clear to auscultation throughout. HEART/CARDIOVASCULAR: Regular rate and rhythm. ABDOMEN: Positive for tenderness to palpation of right upper quadrant. Positive for minimal guarding. Bowel sounds normoactive. Negative for CVA tenderness bilaterally. EXTREMITIES: Peripheral pulses intact. Capillary refill less than 2 seconds. NEURO: Alert and oriented x 3. Normal gait. ED Course Vital Signs 07/22/16 07/22/16 09:37 14:16 Temperature 97.7 F 98.1 F Pulse Rate 63 55 L Respiratory 18 15 Rate Blood Pressure 114/77 Blood Pressure 109/70 [Left] O2 Sat by Pulse 100 99 Oximetry - Reevaluation(s) Reevaluation #1: 07/22/16 13:10 Discussed patient's history, lab results and ultrasound results with Dr. Edwards. Dr. Edwards would like to consult with gastroenterology for possible outpatient follow-up. Reevaluation #2: 07/22/16 17:[address]emp[address]. Kemp recommended outpatient follow up with General Surgeon for gallbladder removal since patient is in a stable condition. ED Medical Decision Making - Lab Data Result diagrams: 07/22/16 09:52 07/22/16 09:52 Vital Signs 07/22/16 07/22/16 09:37 14:16 Temperature 97.7 F 98.1 F Pulse Rate 63 55 L Respiratory 18 15 Rate Blood Pressure 114/77 Blood Pressure 109/70 [Left] O2 Sat by Pulse 100 99 Oximetry Lab Results 07/22/16 07/22/16 07/22/16 Range/Units 09:52 09:52 Unknown WBC 9.8 (4.5-11.0) K/mm3 RBC 4.33 (3.65-5.03) M/mm3 Hgb 13.8 (10.1-14.3) gm/dl Hct 41.4 (30.3-42.9) % MCV 96 (79-97) fl MCH 32 (28-32) pg MCHC 33 (30-34) % RDW 15.1 (13.2-15.2) % Plt Count 247 (140-440) K/mm3 Lymph % (Auto) 19.8 (13.4-35.0) % [place] % (Auto) 5.7 (0.0-7.3) % Eos % (Auto) 3.3 (0.0-4.3) % Baso % (Auto) 0.6 (0.0-1.8) % Lymph # 1.9 (1.2-5.4) K/mm3 [place] # 0.6 (0.0-0.8) K/mm3 Eos # 0.3 (0.0-0.4) K/mm3 Baso # 0.1 (0.0-0.1) K/mm3 Seg Neutrophils % 70.6 H (40.0-70.0) % Seg Neutrophils # 6.9 (1.8-7.7) K/mm3 Sodium 141 (137-145) mmol/L Potassium 4.2 (3.6-5.0) mmol/L Chloride 103.8 (98-107) mmol/L Carbon Dioxide 23 (22-30) mmol/L Anion Gap 18 mmol/L BUN 8 (7-17) mg/dL Creatinine 0.7 (0.7-1.2) mg/dL Estimated GFR > 60 ml/min BUN/Creatinine Ratio 11.42 % Glucose 103 H (65-100) mg/dL Calcium 9.4 (8.4-10.2) mg/dL Total Bilirubin 0.8 (0.1-1.2) mg/dL AST 22 (5-40) units/L ALT 29 (7-56) units/L Alkaline Phosphatase 129 (35-129) units/L Total Protein 8.4 H (6.3-8.2) g/dL Albumin 4.7 (3.9-5) g/dL Albumin/Globulin Ratio 1.3 % Lipase 38 (13-60) units/L Urine Color Yellow (Yellow) Urine Turbidity Clear (Clear) Urine pH 5.0 (5.0-7.0) Ur Specific [place] 1.025 (1.003-1.030) Urine Protein <15 mg/dl (Negative) mg/dL Urine Glucose (UA) Neg (Negative) mg/dL Urine Ketones Neg (Negative) mg/dL Urine Blood Sm (Negative) Urine Nitrite Neg (Negative) Urine Bilirubin Neg (Negative) Urine Urobilinogen < 2.0 (<2.0) mg/dL Ur Leukocyte Esterase Neg (Negative) Urine WBC (Auto) 1.0 (0.0-6.0) /HPF Urine RBC (Auto) 2.0 (0.0-6.0) /HPF U Epithel Cells (Auto) 4.0 (0-13.0) /HPF Urine Mucus 2+ /HPF - Radiology Data Radiology results: report reviewed ULTRASOUND ABDOMEN COMPLETE: Technique: Transabdominal ultrasound with color Doppler interrogation. History: Right upper quadrant pain, gallstones. Findings: The liver is echogenic suggesting diffuse fatty infiltration. No focal liver mass or surface nodularity. There are several small shadowing gallstones in the gallbladder. No abnormal distention or wall thickening. No surrounding fluid. The CBD is also mildly dilated measuring 7-8 mm. The visualized portions of the pancreas including the head and proximal body are within normal limits. The kidneys demonstrate no hydronephrosis or mass. Cortical thickness and echogenicity are within normal limits bilaterally. The spleen and aorta are within normal limits. No aneurysmal dilatation is noted. No ascites. The bladder is unremarkable. IMPRESSION: Fatty change in the liver. Cholelithiasis. No secondary findings of acute cholecystitis. Dilated common bile duct which could represent choledocholithiasis. - Medical Decision Making 31-year-old female presents today with right upper quadrant pain. Patient was seen here on June 14 choledocholithiasis and an ERCP was performed. Patient reports symptomatic relief post procedure and states she followed up with her GI specialist. The pain worsened 4 days ago. An ultrasound was ordered and reveals cholelithiasis. No secondary findings of acute cholecystitis. Dilated common bile duct which could represent choledocholithiasis. Consulted with Dr. Tran who wanted a consult with gastroenterology. Consulted with Dr. Gladis joshi who recommended outpatient follow-up with general surgery. Patient was given [place] and reported symptomatic relief. Informed the patient that surgery referral and the importance of follow-up. Patient expressed understanding. Patient is in no acute distress at this time. She will be discharged home and is encouraged to follow up with general surgery. She will be sent home on Zofran and [place] and is encouraged to return to the emergency room for any worsening symptoms. Critical care attestation.: If time is entered above; I have spent that time in minutes in the direct care of this critically ill patient, excluding procedure time. ED Disposition Clinical Impression: Cholelithiasis Qualifiers: Cholelithiasis location: gallbladder and bile duct Cholecystitis presence: without cholecystitis Biliary obstruction: without biliary obstruction Qualified Code(s): K80.70 - Calculus of gallbladder and bile duct without cholecystitis without obstruction Abdominal pain Qualifiers: Abdominal location: right upper quadrant Qualified Code(s): R10.11 - Right upper quadrant pain Disposition: DISCHARGED TO HOME OR SELFCARE Is pt being admited?: No Does the pt Need Aspirin: No Condition: Stable Instructions: Abdominal Pain (ED), Biliary Colic (ED) Additional Instructions: Follow-up with primary care provider. Return to the emergency department if symptoms worsen. Prescriptions: HYDROcodone/APAP 5-325 [[place] 5/325] 1 each PO Q6HR PRN #14 tablet PRN Reason: Pain Ondansetron [Zofran TAB] 4 mg PO Q8HR PRN #30 tablet PRN Reason: Nausea Referrals: PRIMARY CAREMD [Primary Care Provider] - 3-5 Days AROLDO YOUNG MD [Staff Physician] - 3-5 Days Forms: Work/School Release Form(ED) Time of Disposition: 17:31
== END 2016-07-22 17:58 | disposition home or self-care (01) ==
LOC: ED 08:54
DX: K80.70 Calculus of gallbladder and bile duct without cholecystitis without obstruction (principal); D64.9 Anemia, unspecified
CPT/HCPCS: 36415; 76700; 80053; 81001; 83690; 85025

== ENCOUNTER 2019-09-23 13:35 | Inpatient (IN) | payer OTHER ==
[2019-09-23] MEDS ORDERED: LIDOCAINE (2%) 20 MG/1 ML VIAL 20 ML MDV INFILTRATI ONE (14:04)
[2019-09-23] MEDS ORDERED: BUTORPHANOL 2 MG/1 ML INJ IV PRN (14:04)
[2019-09-23] MEDS ORDERED: MINERAL OIL 30 ML ORAL LIQD PO PRN (14:04)
[2019-09-23] MEDS ORDERED: fentaNYL 100 MCG/2 ML INJ IV PRN (14:04)
[2019-09-23] MEDS ORDERED: ePHEDrine SULFATE 50 MG/1 ML INJ IV PRN ×2 (14:04→20:57)
[2019-09-23] MEDS ORDERED: TERBUTALINE 1 MG/1 ML INJ SUB-Q PRN (14:04)
[2019-09-23] MEDS ORDERED: AMPICILLIN/NS 2 GM/100 ML 2 GM/100 ML BAG IV ONE (14:04)
[2019-09-23] MEDS ORDERED: TERBUTALINE 1 MG/1 ML INJ IVP PRN (14:04)
[2019-09-23 14:36] LABS: Hematocrit 35.4 % (30.3-42.9); Hemoglobin 11.8 gm/dl (10.1-14.3); Mean Corpuscular HGB Conc 33 % (30-34); Mean Corpuscular Volume 92 fl (79-97); Platelet Count 146 K/mm3 (140-440); Red Blood Count 3.86 M/mm3 (3.65-5.03); Red Cell Distribution Width 18.9 % (13.2-15.2)
[2019-09-23] MEDS: LACTATED RINGERS 1,000 ML IV SCH (15:00)
[2019-09-23] MEDS ORDERED: OXYTOCIN 20 UNIT/1000ML DRIP 20 UNITS/1,000 ML BAG IV SCH (15:00)
--- NOTE | 2019-09-23 15:34 | History and Physical Report ---
History of Present Illness Date of examination: 09/23/19 Date of admission: 09/23/19 13:35 Chief complaint: Advanced dilation History of present illness: 34 yo, @ 35.4 wks, initiated care with Sara Johnson at 9.4 wks gestation. Her has been complicated by AMA, GDM - A2 and abnormal PAP. She was seen earlier today at the clinic and was found to have advanced cervical dilation, therefore sent to [facility] for admission. She reports +FM. Denies any VB or LOF. She reports she is ctx occasionally, but not painfully. Labs: O+, antibody negative; VDRL non-reactive; HBsAg negative; HIV negative; GC/Chlamydia negative; HgbA1c - 6.4; GBS unknown. Past History Past Medical History: other (GDM) Past Surgical History: no surgical history [employer] History: abnormal PAP smear Family/Genetic History: none Social history: , lives with family, full code. denies: smoking, alcohol abuse, prescription drug abuse, IV drug use - Obstetrical History Expected Date of Delivery: 10/24/19 Actual Gestation: 35 Week(s) 4 Day(s) : 6 Para: 5 Hx # Term Pregnancies: 5 Number of Pregnancies: 4 Spontaneous Abortions: 0 Induced : 0 Number of Living Children: 5 #1 Gender: Male year: 2,001 Birthweight: 2.903 kg Method of Delivery: Vaginal Gestational age at delivery: 38 Complications: none #2 Infant Gender: Female year: 2,005 Birthweight: 3.311 kg Method of Delivery: Vaginal Gestational age at delivery: 38 Complications: none #3 Infant Gender: Male year: 2,008 Birthweight: 3.719 kg Method of Delivery: Vaginal Gestational age at delivery: 38 Complications: none #4 Infant Gender: Male year: 2,011 Birthweight: 3.311 kg Method of Delivery: Vaginal Gestational age at delivery: 38 Complications: none #5 Gender: Female year: 2,016 Birthweight: 3.311 kg Method of Delivery: Vaginal Gestational age at delivery: 40 Complications: none Medications and Allergies Allergies Allergy/AdvReac Type Severity Reaction Status Date / Time No Known Allergies Allergy Unverified 06/13/16 11:48 Home Medications Medication Instructions Recorded Confirmed Last Taken Type Ondansetron [Zofran TAB] 4 mg PO Q8HR PRN #30 tablet 06/14/16 Unknown Rx traMADoL [Ultram] 50 mg PO Q6HR PRN #20 tablet 06/14/16 Unknown Rx HYDROcodone/APAP 5-325 [Mcallen 1 each PO Q6HR PRN #14 tablet 07/22/16 Unknown Rx 5/325] Ondansetron [Zofran TAB] 4 mg PO Q8HR PRN #30 tablet 07/22/16 Unknown Rx Active Meds: Active Medications Butorphanol Tartrate (Stadol) 2 mg IV Q2H PRN PRN Reason: Pain , Severe (7-10) Ephedrine Sulfate (Ephedrine Sulfate) 10 mg IV Q2M PRN PRN Reason: Hypotension Fentanyl (Sublimaze) 100 mcg IV Q2H PRN PRN Reason: Labor Pain Oxytocin/Sodium Chloride (Pitocin/Ns 20 Unit/1000ml Drip) 20 units in 1,000 mls @ 125 mls/hr IV DIRECT CAMERON Lactated Ringer's (Lactated Ringers) 1,000 mls @ 125 mls/hr IV DIRECT CAMERON Ampicillin Sodium (Ampicillin/Ns 1 Gm/50 Ml) 1 gm in 50 mls @ 100 mls/hr IV Q4HR CAMERON; Protocol Mineral Oil (Mineral Oil) 30 ml PO QHS PRN PRN Reason: Constipation Terbutaline Sulfate (Brethine) 0.25 mg SUB-Q ONCE PRN PRN Reason: Hyperstimulation/Hypertonicity Terbutaline Sulfate (Brethine) 0.25 mg IVP ONCE PRN PRN Reason: Hyperstimulation/Hypertonicity Review of Systems All systems: negative Genitourinary: contractions - Vital Signs Vital signs: Vital Signs Pulse BP 81 118/72 09/23/19 14:09 09/23/19 14:09 Temp Pulse Resp BP Pulse Ox 81 118/72 09/23/19 14:09 09/23/19 14:09 - Physical Exam Breasts: Positive: normal Cardiovascular: Regular rate Lungs: Positive: Normal air movement Abdomen: Positive: other (gravid) Genitourinary (Female): Positive: normal external genitalia, normal perenium Uterus: Positive: enlarged (S>D) Extremities: Positive: normal Deep Tendon Reflex Grade: Normal +2 - Obstetrical FHR: category 1 Uterine Contraction Monitor Mode: External Cervical Dilatation: 7 Cervical Effacement Percentage: 90 station: -2 Uterine Contraction Frequency (min): 6-7 Uterine Contraction Pattern: Irregular Uterine Tone Measurement Phase: Resting Uterine Contraction Intensity: Moderate Results Result Diagrams: 09/23/19 14:00 Abnormal lab results 09/23/19 09/23/19 Range/Units 14:00 15:21 RDW 18.9 H (13.2-15.2) % POC Glucose 54 L (70-105) All other labs normal. Assessment and Plan - Patient Problems (1) labor Current Visit: Yes Status: Acute Plan to address problem: Admit to L & D Expectant labor management Pain meds as desired Anticipate (2) GBS screening not performed Current Visit: Yes Status: Acute Plan to address problem: GBS prophylaxis per protocol
[2019-09-23] MEDS ORDERED: BETAMET ACET/BETAMET NA PH 6 MG/ML INJ 5 ML MDV IM ONE (17:10)
[2019-09-23] MEDS: AMPICILLIN/NS 1 GM/50 ML 1 GM/50 ML BAG IV SCH ×2 (18:41→21:41)
[2019-09-23] MEDS ORDERED: DEXMEDETOMIDINE 200 MCG/2 ML VIAL IV ONE (20:44)
[2019-09-23] MEDS ORDERED: NALOXONE 2 MG/2 ML INJ IV PRN (20:57)
--- NOTE | 2019-09-23 20:57 | Anesthesia Consultation ---
Anesthesia Consult and Med Hx Date of service: 09/23/19 - Airway Anesthetic Teeth Evaluation: Good ROM Head & Neck: Adequate Mental/Hyoid Distance: Adequate Mallampati Class: Class II Intubation Access Assessment: Probably Good - Pulmonary Exam CTA: Yes - Cardiac Exam Cardiac Exam: RRR - Pre-Operative Health Status ASA Pre-Surgery Classification: ASA3 Proposed Anesthetic Plan: Epidural - Pulmonary Hx Asthma: No COPD: No Hx Pneumonia: No - Cardiovascular System Hx Hypertension: No - Central Nervous System Hx Seizures: No Hx Psychiatric Problems: No - Endocrine Hx Renal Disease: No Hx End Stage Renal Disease: No Hx Non-Insulin Dependent Diabetes: Yes Hx Hypothyroidism: No Hx Hyperthyroidism: No - Hematic Hx Anemia: No Hx Sickle Cell Disease: No - Other Systems Hx Alcohol Use: No Hx Cancer: No
[2019-09-23] MEDS: fentaNYL-BUPIV 2 MCG/ML-0.125% 200 MCG/100 ML BAG EPIDURAL SCH (21:42)
[2019-09-24] MEDS: AMPICILLIN/NS 1 GM/50 ML 1 GM/50 ML BAG IV SCH ×2 (02:18→05:48)
[2019-09-24] MEDS: LACTATED RINGERS 1,000 ML IV SCH (05:48)
[2019-09-24] MEDS: fentaNYL-BUPIV 2 MCG/ML-0.125% 200 MCG/100 ML BAG EPIDURAL SCH (05:49)
--- NOTE | 2019-09-24 08:39 | Progress Note ---
Assessment and Plan A: IUP@ 35.5 wks SROM with lite mec GBS unknown CAT I FHT P: Continue abt for + GBS Continue monitoring Anticipate - Patient Problems (1) GBS screening not performed Current Visit: Yes Status: Acute (2) labor Current Visit: Yes Status: Acute Subjective - Subjective Date of service: 09/24/19 Patient reports: movement normal Objective - Vital Signs Vital Signs: Vital Signs - 12hr 09/23/19 09/23/19 09/23/19 20:41 20:43 20:44 Temperature Pulse Rate 90 88 56 L Respiratory Rate Blood Pressure 122/60 Blood Pressure [Left] O2 Sat by Pulse 98 83 L Oximetry 09/23/19 09/23/19 09/23/19 20:47 20:48 20:50 Temperature Pulse Rate 94 H 100 H 94 H Respiratory Rate Blood Pressure 122/74 120/74 Blood Pressure [Left] O2 Sat by Pulse 98 Oximetry 09/23/19 09/23/19 09/23/19 20:52 20:53 20:58 Temperature Pulse Rate 94 H 91 H 76 Respiratory Rate Blood Pressure 120/65 115/62 Blood Pressure [Left] O2 Sat by Pulse 97 94 Oximetry 09/23/19 09/23/19 09/23/19 21:02 21:03 21:05 Temperature Pulse Rate 75 77 72 Respiratory Rate Blood Pressure 108/58 88/50 Blood Pressure [Left] O2 Sat by Pulse 97 Oximetry 09/23/19 09/23/19 09/23/19 21:08 21:13 21:21 Temperature Pulse Rate 72 64 71 Respiratory Rate Blood Pressure 100/52 103/55 Blood Pressure [Left] O2 Sat by Pulse 97 96 Oximetry 09/23/19 09/23/19 09/23/19 21:35 21:39 21:41 Temperature Pulse Rate 69 67 75 Respiratory Rate Blood Pressure 98/51 93/54 93/53 Blood Pressure [Left] O2 Sat by Pulse Oximetry 09/23/19 09/23/19 09/23/19 21:48 21:59 22:09 Temperature Pulse Rate 68 61 70 Respiratory Rate Blood Pressure 102/55 94/55 99/56 Blood Pressure [Left] O2 Sat by Pulse Oximetry 09/23/19 09/23/19 09/23/19 22:20 22:21 22:29 Temperature Pulse Rate 70 69 72 Respiratory Rate Blood Pressure 98/56 97/53 91/53 Blood Pressure [Left] O2 Sat by Pulse Oximetry 09/23/19 09/23/19 09/23/19 22:40 22:51 23:00 Temperature Pulse Rate 67 74 72 Respiratory Rate Blood Pressure 95/52 98/56 96/57 Blood Pressure [Left] O2 Sat by Pulse Oximetry 09/23/19 09/23/19 09/23/19 23:10 23:20 23:30 Temperature Pulse Rate 68 73 70 Respiratory Rate Blood Pressure 98/55 99/54 99/54 Blood Pressure [Left] O2 Sat by Pulse Oximetry 09/23/19 09/23/19 09/23/19 23:39 23:47 23:49 Temperature Pulse Rate 71 73 77 Respiratory Rate Blood Pressure 89/50 98/53 94/55 Blood Pressure [Left] O2 Sat by Pulse Oximetry 09/24/19 09/24/19 09/24/19 00:00 00:01 00:05 Temperature 99.9 F H Pulse Rate 74 85 Respiratory 18 Rate Blood Pressure 90/54 88/55 Blood Pressure [Left] O2 Sat by Pulse 99 Oximetry 09/24/19 09/24/19 09/24/19 00:34 01:21 01:51 Temperature Pulse Rate 74 92 H 83 Respiratory Rate Blood Pressure 106/60 97/53 110/52 Blood Pressure [Left] O2 Sat by Pulse Oximetry 09/24/19 09/24/19 09/24/19 02:00 02:22 02:51 Temperature 99.3 F Pulse Rate 82 83 Respiratory Rate Blood Pressure 96/53 95/50 Blood Pressure [Left] O2 Sat by Pulse Oximetry 09/24/19 09/24/19 09/24/19 03:21 03:51 04:21 Temperature Pulse Rate 86 84 87 Respiratory Rate Blood Pressure 93/51 95/51 93/55 Blood Pressure [Left] O2 Sat by Pulse Oximetry 09/24/19 09/24/19 09/24/19 04:40 04:50 05:43 Temperature 98.8 F Pulse Rate 90 95 H Respiratory 16 Rate Blood Pressure 95/50 98/53 Blood Pressure [Left] O2 Sat by Pulse 97 Oximetry 09/24/19 09/24/19 09/24/19 06:41 07:00 07:06 Temperature 98.7 F Pulse Rate 92 H 91 H 91 H Respiratory 18 Rate Blood Pressure 94/53 108/55 Blood Pressure 108/55 [Left] O2 Sat by Pulse Oximetry 09/24/19 09/24/19 09/24/19 07:11 07:16 07:17 Temperature Pulse Rate 95 H 90 89 Respiratory Rate Blood Pressure Blood Pressure [Left] O2 Sat by Pulse 94 94 94 Oximetry 09/24/19 09/24/19 09/24/19 07:21 07:22 07:26 Temperature Pulse Rate 96 H 95 H 93 H Respiratory Rate Blood Pressure Blood Pressure [Left] O2 Sat by Pulse 95 94 94 Oximetry 09/24/19 09/24/19 09/24/19 07:29 07:31 07:35 Temperature Pulse Rate 94 H 97 H 92 H Respiratory Rate Blood Pressure Blood Pressure [Left] O2 Sat by Pulse 94 95 94 Oximetry 09/24/19 09/24/19 09/24/19 07:36 07:41 07:46 Temperature Pulse Rate 92 H 91 H 92 H Respiratory Rate Blood Pressure 99/57 Blood Pressure [Left] O2 Sat by Pulse 94 91 95 Oximetry 09/24/19 09/24/19 09/24/19 07:49 07:51 07:56 Temperature Pulse Rate 102 H 90 95 H Respiratory Rate Blood Pressure Blood Pressure [Left] O2 Sat by Pulse 94 96 95 Oximetry 09/24/19 09/24/19 09/24/19 08:01 08:06 08:11 Temperature Pulse Rate 96 H 92 H 94 H Respiratory Rate Blood Pressure Blood Pressure [Left] O2 Sat by Pulse 95 95 95 Oximetry 09/24/19 08:16 Temperature Pulse Rate 97 H Respiratory Rate Blood Pressure Blood Pressure [Left] O2 Sat by Pulse 96 Oximetry - Exam Breasts: deferred Abdomen: Present: soft Vulva: both: normal Uterus: Present: normal FHR: category 1 Uterine Contraction Monitor Mode: External Cervical Dilatation: 7 Cervical Effacement Percentage: 90 station: -1 Uterine Contraction Frequency (min): q2-4 Uterine Contraction Pattern: Regular Uterine Tone Measurement Phase: Resting Uterine Contraction Intensity: Moderate Extremities: normal - Labs Labs: Abnormal Labs 09/23/19 09/23/19 09/23/19 14:00 15:21 18:21 RDW 18.9 H POC Glucose 54 L 65 L Laboratory Results - last 24 hr 09/23/19 09/23/19 09/23/19 14:00 14:00 15:21 WBC 6.6 RBC 3.86 Hgb 11.8 Hct 35.4 MCV 92 MCH 31 MCHC 33 RDW 18.9 H Plt Count 146 POC Glucose 54 L Blood Type O POSITIVE Antibody Screen Negative 09/23/19 09/24/19 09/24/19 18:21 00:03 06:22 WBC RBC Hgb Hct MCV MCH MCHC RDW Plt Count POC Glucose 65 L 104 88 Blood Type Antibody Screen
--- NOTE | 2019-09-24 10:00 | Progress Note ---
Assessment and Plan - Patient Problems (1) labor Current Visit: Yes Status: Acute Qualifiers: labor trimester: third trimester Plan to address problem: AROM @ 0945, clear fluids Initiate Pitocin augmentation @ 2mu with max of 6mu/min as tolerated Anticipate (2) GBS screening not performed Current Visit: Yes Status: Acute Plan to address problem: GBS prophylaxis per protocol Subjective - Subjective Date of service: 09/24/19 Principal diagnosis: labor Interval history: 34 yo, @ 35.4 wks, initiated care with Sara Johnson at 9.4 wks gestation. Her has been complicated by AMA, GDM - A2 and abnormal PAP. She was seen earlier today at the clinic and was found to have advanced cervical dilation, therefore sent to [facility] for admission. She reports +FM. Denies any VB or LOF. She reports she is ctx occasionally, but not painfully. Labs: O+, antibody negative; VDRL non-reactive; HBsAg negative; HIV negative; GC/Chlamydia negative; HgbA1c - 6.4; GBS unknown. Patient reports: movement normal, contractions ("can't feel them with epidural"), no vaginal bleeding Objective - Vital Signs Vital Signs: Vital Signs - 12hr 09/23/19 09/23/19 09/23/19 21:59 22:09 22:20 Temperature Pulse Rate 61 70 70 Respiratory Rate Blood Pressure 94/55 99/56 98/56 Blood Pressure [Left] O2 Sat by Pulse Oximetry 09/23/19 09/23/19 09/23/19 22:21 22:29 22:40 Temperature Pulse Rate 69 72 67 Respiratory Rate Blood Pressure 97/53 91/53 95/52 Blood Pressure [Left] O2 Sat by Pulse Oximetry 09/23/19 09/23/19 09/23/19 22:51 23:00 23:10 Temperature Pulse Rate 74 72 68 Respiratory Rate Blood Pressure 98/56 96/57 98/55 Blood Pressure [Left] O2 Sat by Pulse Oximetry 09/23/19 09/23/19 09/23/19 23:20 23:30 23:39 Temperature Pulse Rate 73 70 71 Respiratory Rate Blood Pressure 99/54 99/54 89/50 Blood Pressure [Left] O2 Sat by Pulse Oximetry 09/23/19 09/23/19 09/24/19 23:47 23:49 00:00 Temperature 99.9 F H Pulse Rate 73 77 Respiratory 18 Rate Blood Pressure 98/53 94/55 Blood Pressure [Left] O2 Sat by Pulse 99 Oximetry 09/24/19 09/24/19 09/24/19 00:01 00:05 00:34 Temperature Pulse Rate 74 85 74 Respiratory Rate Blood Pressure 90/54 88/55 106/60 Blood Pressure [Left] O2 Sat by Pulse Oximetry 09/24/19 09/24/19 09/24/19 01:21 01:51 02:00 Temperature 99.3 F Pulse Rate 92 H 83 Respiratory Rate Blood Pressure 97/53 110/52 Blood Pressure [Left] O2 Sat by Pulse Oximetry 09/24/19 09/24/19 09/24/19 02:22 02:51 03:21 Temperature Pulse Rate 82 83 86 Respiratory Rate Blood Pressure 96/53 95/50 93/51 Blood Pressure [Left] O2 Sat by Pulse Oximetry 09/24/19 09/24/19 09/24/19 03:51 04:21 04:40 Temperature Pulse Rate 84 87 90 Respiratory Rate Blood Pressure 95/51 93/55 95/50 Blood Pressure [Left] O2 Sat by Pulse Oximetry 09/24/19 09/24/19 09/24/19 04:50 05:43 06:41 Temperature 98.8 F Pulse Rate 95 H 92 H Respiratory 16 Rate Blood Pressure 98/53 94/53 Blood Pressure [Left] O2 Sat by Pulse 97 Oximetry 09/24/19 09/24/19 09/24/19 07:00 07:06 07:11 Temperature 98.7 F Pulse Rate 91 H 91 H 95 H Respiratory 18 Rate Blood Pressure 108/55 Blood Pressure 108/55 [Left] O2 Sat by Pulse 94 Oximetry 09/24/19 09/24/19 09/24/19 07:16 07:17 07:21 Temperature Pulse Rate 90 89 96 H Respiratory Rate Blood Pressure Blood Pressure [Left] O2 Sat by Pulse 94 94 95 Oximetry 09/24/19 09/24/19 09/24/19 07:22 07:26 07:29 Temperature Pulse Rate 95 H 93 H 94 H Respiratory Rate Blood Pressure Blood Pressure [Left] O2 Sat by Pulse 94 94 94 Oximetry 09/24/19 09/24/19 09/24/19 07:31 07:35 07:36 Temperature Pulse Rate 97 H 92 H 92 H Respiratory Rate Blood Pressure Blood Pressure [Left] O2 Sat by Pulse 95 94 94 Oximetry 09/24/19 09/24/19 09/24/19 07:41 07:46 07:49 Temperature Pulse Rate 91 H 92 H 102 H Respiratory Rate Blood Pressure 99/57 Blood Pressure [Left] O2 Sat by Pulse 91 95 94 Oximetry 09/24/19 09/24/19 09/24/19 07:51 07:56 08:01 Temperature Pulse Rate 90 95 H 96 H Respiratory Rate Blood Pressure Blood Pressure [Left] O2 Sat by Pulse 96 95 95 Oximetry 09/24/19 09/24/19 09/24/19 08:06 08:11 08:16 Temperature Pulse Rate 92 H 94 H 97 H Respiratory Rate Blood Pressure Blood Pressure [Left] O2 Sat by Pulse 95 95 96 Oximetry 09/24/19 09/24/19 09/24/19 08:21 08:26 08:31 Temperature Pulse Rate 100 H 95 H 96 H Respiratory Rate Blood Pressure Blood Pressure [Left] O2 Sat by Pulse 95 95 96 Oximetry 09/24/19 09/24/19 09/24/19 08:36 08:41 08:46 Temperature Pulse Rate 94 H 94 H 96 H Respiratory Rate Blood Pressure 98/55 Blood Pressure [Left] O2 Sat by Pulse 95 92 95 Oximetry 09/24/19 09/24/19 09/24/19 08:51 08:56 09:01 Temperature Pulse Rate 97 H 100 H 94 H Respiratory Rate Blood Pressure Blood Pressure [Left] O2 Sat by Pulse 96 96 96 Oximetry 09/24/19 09/24/19 09/24/19 09:06 09:11 09:16 Temperature Pulse Rate 99 H 105 H 95 H Respiratory Rate Blood Pressure Blood Pressure [Left] O2 Sat by Pulse 95 95 95 Oximetry 09/24/19 09/24/19 09/24/19 09:21 09:26 09:31 Temperature Pulse Rate 93 H 99 H 105 H Respiratory Rate Blood Pressure Blood Pressure [Left] O2 Sat by Pulse 96 96 95 Oximetry 09/24/19 09/24/19 09/24/19 09:36 09:41 09:42 Temperature Pulse Rate 99 H 101 H 107 H Respiratory Rate Blood Pressure Blood Pressure [Left] O2 Sat by Pulse 95 96 92 Oximetry 09/24/19 09/24/19 09/24/19 09:43 09:46 09:51 Temperature Pulse Rate 109 H 108 H 107 H Respiratory Rate Blood Pressure 104/64 Blood Pressure [Left] O2 Sat by Pulse 96 96 Oximetry 09/24/19 09:54 Temperature 98.5 F Pulse Rate Respiratory Rate Blood Pressure Blood Pressure [Left] O2 Sat by Pulse Oximetry - Exam Breasts: deferred Cardiovascular: Regular rate Lungs: Normal air movement Abdomen: Present: other (gravid) Uterus: Present: other (S>D) FHR: category 1 Uterine Contraction Monitor Mode: External Cervical Dilatation: 7 (vertex) Cervical Effacement Percentage: 90 station: -2 Uterine Contraction Frequency (min): 3-6 Uterine Contraction Pattern: Irregular Uterine Tone Measurement Phase: Resting Uterine Contraction Intensity: Moderate Extremities: normal - Labs Labs: Abnormal Labs 09/23/19 09/23/19 09/23/19 14:00 15:21 18:21 RDW 18.9 H POC Glucose 54 L 65 L Laboratory Results - last 24 hr 09/23/19 09/23/19 09/23/19 14:00 14:00 15:21 WBC 6.6 RBC 3.86 Hgb 11.8 Hct 35.4 MCV 92 MCH 31 MCHC 33 RDW 18.9 H Plt Count 146 POC Glucose 54 L Blood Type O POSITIVE Antibody Screen Negative 09/23/19 09/24/19 09/24/19 18:21 00:03 06:22 WBC RBC Hgb Hct MCV MCH MCHC RDW Plt Count POC Glucose 65 L 104 88 Blood Type Antibody Screen
[2019-09-24] MEDS ORDERED: OXYTOCIN DRIP 30 UNITS/500 ML BAG IV SCH (10:30)
[2019-09-24] MEDS ORDERED: METHYLERGONOVINE MALEATE 0.2 MG/ML VIAL IM ONE (13:30)
[2019-09-24] MEDS ORDERED: LIDOCAINE (2%) 20 MG/1 ML VIAL 20 ML MDV INFILTRATI ONE ×2 (13:32→14:00)
[2019-09-24] MEDS ORDERED: WITCH HAZEL/ GLYCERIN PAD TP PRN (13:50)
[2019-09-24] MEDS ORDERED: LANOLIN/ZINC/DIMETHICONE (LANSINOH) 7 GM TP PRN (13:50)
[2019-09-24] MEDS ORDERED: ONDANSETRON 4 MG/2 ML INJ IV PRN (13:50)
[2019-09-24] MEDS ORDERED: PROMETHAZINE 25 MG TAB PO PRN (13:50)
[2019-09-24] MEDS ORDERED: diphenhydrAMINE 25 MG CAP PO PRN (13:50)
[2019-09-24] MEDS ORDERED: PROMETHAZINE 25 MG RECT SUPP PR PRN (13:50)
[2019-09-24] MEDS ORDERED: oxyCODONE /ACETAMINOPHEN 5-325MG TAB PO PRN (13:50)
[2019-09-24] MEDS ORDERED: MAGNESIUM HYDROXIDE (MOM) ORAL LIQD UDC PO PRN (13:50)
--- NOTE | 2019-09-24 13:59 | Procedure Note ---
OB Delivery Note - Delivery Date of Delivery: 09/24/19 (1321) Surgeon: APRIL SOLIS (CNM) Estimated blood loss: 300cc - Vaginal Delivery presentation: vertex Delivery position: OA (GIORGI) Intrapartum events: labor-<37 weeks Delivery augmentation: rupture of membranes (AROM @ 0945), pitocin Delivery monitor: external FHT, external uterine Route of delivery: Delivery placenta: spontaneous (1326) Delivery cord: 3 umbilical vessels Episiotomy: none Delivery laceration: 1st degree Delivery repair: vicryl (3.0 SH) Anesthesia: epidural Delivery comments: of viable crying female , placed immediately on maternal abdomen. Cord double clamped, cut by FOB after cessation of pulsation. Cord blood collected and sent to lab. Placenta spontaneously delivered, tiffany, sent to pathology. Uterus firm @ U-1, hemostasis maintained. 1st degree perineal laceration, repaired. Mother and baby safe and stable , left in care of RN. - A at 1 minute: 8 at 5 minutes: 9 Gender: Female (Weight: 3754 grams (8lbs 4ozs) 20 inches)
[2019-09-24] MEDS: IBUPROFEN 600 MG TAB PO SCH ×2 (14:25→20:26)
--- NOTE | 2019-09-24 20:08 | Post Anesthesia Evaluation ---
- Post Anesthesia Evaluation Patient Participated: Yes Airway Patent: Yes Stable Respiratory Function: Yes Nausea/Vomiting: No Temp > 96.8F: Yes Pain Manageable: Yes Adequeate Hydration: Yes Anesthesia Complications: No Block Receding Appropriately: Yes
[2019-09-25] MEDS: IBUPROFEN 600 MG TAB PO SCH ×3 (02:56→18:11)
[2019-09-25 04:38] LABS: Hematocrit 30.9 % (30.3-42.9); Hemoglobin 10.2 gm/dl (10.1-14.3)
--- NOTE | 2019-09-25 08:15 | Progress Note ---
Assessment and Plan A: day 1 S/P . Anemia. P: Supplement with iron. Subjective - Subjective Date of service: 09/25/19 Principal diagnosis: day 1 Interval history: day 1 S/P . Doing well. Patient reports: appetite normal, voiding normally, pain well controlled, flatus, ambulating normally, no dizzy ambulation, no nauseated [place]: doing well Objective - Vital Signs Latest vital signs: Vital Signs Temp Pulse Resp BP BP Pulse Ox 09/25/19 00:29 98.2 F 63 20 92/53 98 09/24/19 20:27 98.2 F 96 H 20 101/62 96 09/24/19 15:20 98 F 92 H 18 120/62 96 09/24/19 14:45 97.8 F 09/24/19 14:42 103 H 134/75 09/24/19 14:39 96 H 97 09/24/19 14:34 96 H 96 09/24/19 14:29 91 H 96 09/24/19 14:27 100 H 135/66 09/24/19 14:24 102 H 96 09/24/19 14:19 100 H 96 09/24/19 14:14 104 H 96 09/24/19 14:12 93 H 122/64 09/24/19 14:08 103 H 96 09/24/19 14:04 96 H 95 09/24/19 13:59 88 97 09/24/19 13:57 93 H 125/64 09/24/19 13:54 99 H 96 09/24/19 13:49 102 H 97 09/24/19 13:44 103 H 97 09/24/19 13:42 97 H 123/67 09/24/19 13:39 101 H 97 09/24/19 13:34 103 H 97 09/24/19 13:29 92 H 97 09/24/19 13:28 102 H 125/68 94 09/24/19 13:24 103 H 96 09/24/19 13:19 130 H 97 09/24/19 13:14 121 H 97 09/24/19 13:09 108 H 95 09/24/19 13:04 107 H 96 09/24/19 12:43 105 H 116/69 09/24/19 12:18 104 H 94 09/24/19 12:16 105 H 97 09/24/19 12:11 104 H 97 09/24/19 12:06 97 H 98 09/24/19 12:01 108 H 97 09/24/19 11:56 115 H 96 09/24/19 11:51 114 H 97 09/24/19 11:46 118 H 96 09/24/19 11:41 114 H 114/57 96 09/24/19 11:36 117 H 96 09/24/19 11:31 115 H 97 09/24/19 11:26 113 H 94 09/24/19 11:21 106 H 95 09/24/19 11:16 108 H 95 09/24/19 11:11 115 H 94 09/24/19 11:09 118 H 94 09/24/19 11:06 116 H 95 09/24/19 11:04 116 H 94 09/24/19 11:01 113 H 95 09/24/19 10:57 111 H 94 09/24/19 10:56 109 H 96 09/24/19 10:51 109 H 97 09/24/19 10:46 114 H 95 09/24/19 10:42 110 H 111/58 92 09/24/19 10:41 111 H 95 09/24/19 10:36 104 H 95 09/24/19 10:35 110 H 94 09/24/19 10:31 107 H 94 09/24/19 10:29 110 H 94 09/24/19 10:26 108 H 95 09/24/19 10:21 102 H 94 09/24/19 10:18 107 H 94 09/24/19 10:16 112 H 95 09/24/19 10:12 107 H 94 09/24/19 10:11 99 H 96 09/24/19 10:06 106 H 96 09/24/19 10:01 108 H 96 09/24/19 09:58 106 H 94 09/24/19 09:56 111 H 95 09/24/19 09:54 98.5 F 09/24/19 09:51 107 H 96 09/24/19 09:46 108 H 96 09/24/19 09:43 109 H 104/64 09/24/19 09:42 107 H 92 09/24/19 09:41 101 H 96 09/24/19 09:36 99 H 95 09/24/19 09:31 105 H 95 04/17/20 09:26 99 H 96 09/24/19 09:21 93 H 96 09/24/19 09:16 95 H 95 09/24/19 09:11 105 H 95 09/24/19 09:06 99 H 95 09/24/19 09:01 94 H 96 09/24/19 08:56 100 H 96 09/24/19 08:51 97 H 96 09/24/19 08:46 96 H 95 09/24/19 08:41 94 H 98/55 92 09/24/19 08:36 94 H 95 09/24/19 08:31 96 H 96 09/24/19 08:26 95 H 95 09/24/19 08:21 100 H 95 09/24/19 08:16 97 H 96 Intake and Output 09/24/19 09/25/19 09/25/19 23:59 07:59 15:59 Intake Total 240 Balance 240 Intake: Oral 240 Other: Total, Intake Amount 240 # Voids Void 1 - Exam Cardiovascular: Present: Regular rate, Normal S1, Normal S2 Lungs: Present: Clear to auscultation Abdomen: Present: normal appearance, soft. Absent: distention, tenderness, gu arding, rigidity Uterus: Present: normal, firm, fundal height below umbilicus. Absent: bogginess, tenderness Extremities: Present: normal. Absent: tenderness, edema
[2019-09-25] MEDS: PRENATAL VIT27-FE FUMARATE-FOLIC ACID VIT TAB PO SCH (09:51)
[2019-09-25] MEDS: FERROUS SULFATE 325 MG TAB PO SCH (09:51)
[2019-09-26] MEDS: PRENATAL VIT27-FE FUMARATE-FOLIC ACID VIT TAB PO SCH (10:30)
[2019-09-26] MEDS: FERROUS SULFATE 325 MG TAB PO SCH (10:30)
[2019-09-26] MEDS: IBUPROFEN 600 MG TAB PO SCH ×2 (11:06→17:58)
--- NOTE | 2019-09-26 13:03 | Progress Note ---
Assessment and Plan A: day 2 S/P . Anemia. P: Discharge patient home today. Discussed with patient discharge instructions and warning signs. Advised pt. to take her vitamin and iron supplements at home. Advised patient to avoid intercourse, lifting, housework. Advised patient to follow up at OB clinic in 4 weeks. Patient voiced understanding of all instructions. Subjective - Subjective Date of service: 09/26/19 Principal diagnosis: day 2 Interval history: day 2 S/P . Doing well. Patient desires discharge today. Patient reports: appetite normal, voiding normally, pain well controlled, flatus, ambulating normally, no dizzy ambulation, no nauseated [place]: doing well Objective - Vital Signs Latest vital signs: Vital Signs Temp Pulse Resp BP Pulse Ox 09/26/19 07:46 98.0 F 59 L 20 114/75 97 09/26/19 00:27 98.2 F 63 20 113/71 97 09/25/19 16:47 97.9 F 68 16 108/70 96 Intake and Output 09/25/19 09/26/19 09/26/19 23:59 07:59 15:59 Intake Total 240 240 360 Balance 240 240 360 Intake: Oral 240 240 120 Intake, Free Water 240 Other: Total, Intake Amount 240 240 120 # Voids Void 1 1 1 - Exam Cardiovascular: Present: Regular rate, Normal S1, Normal S2 Lungs: Present: Clear to auscultation Abdomen: Present: normal appearance, soft. Absent: distention, tenderness, guarding, rigidity Uterus: Present: normal, firm, fundal height below umbilicus. Absent: bogginess, tenderness Extremities: Present: normal. Absent: tenderness, edema
--- NOTE | 2019-09-26 13:07 | Discharge Summary ---
Providers - Providers Date of Admission: 09/23/19 13:35 Date of discharge: 09/26/19 Attending physician: TIMO PLUMMER MD Primary care physician: TIMO PLUMMER MD Hospitalization Reason for admission: active labor, labor Delivery: Episiotomy: none Laceration: 1st degree Other procedures: none complications: none Discharge diagnosis: delivery [place] baby: female Pertinent studies: Labs Hospital course: Normal hospital course. Condition at discharge: Good Disposition: DC-[id number] TO HOME OR SELFCARE - Discharge Diagnoses (1) delivery Status: Acute (2) Anemia Status: Acute Plan - Provider Discharge Summary Activity: routine, no sex for 6 weeks, no heavy lifting 4 weeks, no strenuous exercise Diet: routine Instructions: routine Additional instructions: Continue taking your vitamins and iron supplements at home. Call your doctor immediately for: * Fever > 100.5 * Heavy vaginal bleeding ( >1 pad per hour) * Severe persistent headache * Shortness of breath * Reddened, hot, painful area to leg or breast - Follow up plan Follow up: TIMO PLUMMER MD [Primary Care Provider] - 10/25/19
[2019-09-26 17:18] VITALS: BP 126/80
== END 2019-09-26 19:06 | disposition home or self-care (01) | DRG 807 ==
LOC: LD 13:35 → OB 09-24 15:32
PROVIDERS: ADMIT Obstetrics & Gynecology; ATTEND Obstetrics & Gynecology
PROC: 10E0XZZ Delivery of Products of Conception, External Approach (ICD-10-PCS; principal; 2019-09-24)
PROC: 10907ZC Drainage of Amniotic Fluid, Therapeutic from Products of Conception, Via Natural or Artificial Opening (ICD-10-PCS; 2019-09-24)
PROC: 0HQ9XZZ Repair Perineum Skin, External Approach (ICD-10-PCS; 2019-09-24)
PROC: 3E0R3BZ Introduction of Anesthetic Agent into Spinal Canal, Percutaneous Approach (ICD-10-PCS; 2019-09-24)
PROC: 00HU33Z Insertion of Infusion Device into Spinal Canal, Percutaneous Approach (ICD-10-PCS; 2019-09-24)
DX: O60.14X0 Preterm labor third trimester with preterm delivery third trimester, not applicable or unspecified (principal); Z37.0 Single live birth; Z3A.35 35 weeks gestation of pregnancy; O24.424 Gestational diabetes mellitus in childbirth, insulin controlled; O70.0 First degree perineal laceration during delivery; O77.0 Labor and delivery complicated by meconium in amniotic fluid; O99.824 Streptococcus B carrier state complicating childbirth; O90.81 Anemia of the puerperium; D64.9 Anemia, unspecified
CPT/HCPCS: 36415; 82962; 85014; 85018; 85027; 86850; 86900; 86901; 88307; G0378; J0290; J0595; J0702; J2210; J2590; J3490; J7120